=== PATIENT | male | born 1985 | race Two or more races ===

== ENCOUNTER 2022-09-17 19:52 | Emergency (ER) | payer OTHER ==
[~2022-09-17] VITALS: Ht 175.3 cm; Wt 120.0 kg
[2022-09-17 22:17] VITALS: BP 128/89
== END 2022-09-17 22:18 | disposition home or self-care (01) ==
LOC: ER 19:52
DX: R07.89 Other chest pain (principal)
CPT/HCPCS: 93005; 99283